=== PATIENT | female | born 1985 | race Caucasian/White ===

== ENCOUNTER 2016-11-25 08:53 | Inpatient (IN) | payer OTHER ==
[~2016-11-25] VITALS: Ht 162.6 cm; Wt 82.4 kg
[2016-11-25] VITALS (23 sets, daily range): BP systolic 90–136; BP diastolic 53–81
[2016-11-25] MEDS ORDERED: IRON325 MG PO (09:25)
[2016-11-25] MEDS ORDERED: PRENATAL TABLE1 EAC3 PO (09:25)
[2016-11-25] MEDS ORDERED: TYLENOL EXTRA500 MG PO (09:26)
[2016-11-25] MEDS ORDERED: MAGNESIUM400 M1 PO (09:26)
[2016-11-25] MEDS ORDERED: ZANTAC150 MG PO (09:27)
[2016-11-25 11:34] LABS: EOSINOPHIL (%) 0.1 % (0-5); HEMATOCRIT 36.1 % (36.0-46.0); IMMATURE GRANULOCYTE (%) 0.8 % (0.0-0.7); IMMATURE GRANULOCYTE COUNT 0.1 K/uL; INSTRUMENT ABS NEUTROPHIL CT 9.6 K/uL; LYMPHOCYTE COUNT 1.5 K/uL (1.0-2.8); MCH 31.6 PG (29.0-34.0); MEAN PLAT.VOLUME 11.4 uM^3 (9.5-12.4); MONOCYTE (%) 5.2 % (3-12); MONOCYTE COUNT 0.6 K/uL (0-0.8); NEUTROPHIL (%) 80.7 % (45-76); NEUTROPHIL COUNT 9.6 K/uL (1.8-6.4); PLATELET COUNT 235 K/uL (156-360); RBC DIS.WIDTH-CV 14.1 % (11.8-14.6); RBC DIS.WIDTH-SD 49.3 % (39-53); RED BLOOD COUNT 3.76 M/uL (3.80-5.20); WHITE BLOOD COUNT 11.8 K/uL (4.1-10.2)
[2016-11-26] VITALS (8 sets, daily range): BP systolic 107–127; BP diastolic 58–76
[2016-11-26] MEDS ORDERED: MOTRIN800 MG PO (00:47)
[2016-11-26] MEDS ORDERED: ZANTAC150 MG PO (00:47)
[2016-11-26] MEDS ORDERED: PERCOCET 5/31 TABLET PO (00:47)
[2016-11-27 03:10] VITALS: BP 119/72
[2016-11-27 07:14] LABS: EOSINOPHIL (%) 0.9 % (0-5); EOSINOPHIL COUNT 0.2 K/uL (0-0.3); HEMATOCRIT 31.1 % (36.0-46.0); IMMATURE GRANULOCYTE (%) 0.8 % (0.0-0.7); IMMATURE GRANULOCYTE COUNT 0.1 K/uL; INSTRUMENT ABS NEUTROPHIL CT 12.9 K/uL; MCH 32.1 PG (29.0-34.0); MCHC 32.8 G/DL (30.0-36.0); MCV 97.8 FL (83-99); MONOCYTE (%) 5.3 % (3-12); MONOCYTE COUNT 0.9 K/uL (0-0.8); NEUTROPHIL (%) 80.7 % (45-76); NEUTROPHIL COUNT 12.9 K/uL (1.8-6.4); PLATELET COUNT 179 K/uL (156-360); RBC DIS.WIDTH-CV 14.6 % (11.8-14.6); RBC DIS.WIDTH-SD 52.2 % (39-53); RED BLOOD COUNT 3.18 M/uL (3.80-5.20)
[2016-11-27 07:17] LABS: WHITE BLOOD COUNT 16.1 K/uL (4.1-10.2)
[2016-11-27 07:59] VITALS: BP 112/67
[2016-11-27 10:52] VITALS: BP 109/68
[2016-11-27 16:14] VITALS: BP 118/72
[2016-11-27 19:17] VITALS: BP 118/83
[2016-11-27 23:55] VITALS: BP 110/70
[2016-11-28 03:25] VITALS: BP 123/75
[2016-11-29] VITALS: BP 124/69
[2016-11-29 07:55] VITALS: BP 127/78
== END 2016-11-29 13:36 | disposition home or self-care (01) | DRG 766 ==
LOC: LDRP-OP 08:53 → 2WEST 08:54 → LDRP-OP 12-26 18:40
PROVIDERS: Midwife; Obstetrics & Gynecology
DX: O66.5 Attempted application of vacuum extractor and forceps (principal); O32.4XX0 Maternal care for high head at term, not applicable or unspecified; O77.0 Labor and delivery complicated by meconium in amniotic fluid; O76 Abnormality in fetal heart rate and rhythm complicating labor and delivery; O63.1 Prolonged second stage (of labor); O99.02 Anemia complicating childbirth; D50.9 Iron deficiency anemia, unspecified; Z3A.39 39 weeks gestation of pregnancy; Z37.0 Single live birth
CPT/HCPCS: 85025; 86850; 86900; 86901; 88307; C1755; G0378; J2175; J2274; J3010; J7120

== ENCOUNTER 2018-01-10 19:26 | Day surgery (SDC) | payer OTHER ==
[~2018-01-10] VITALS: Ht 162.6 cm; Wt 81.8 kg
[~2018-01-10 19:26] MED LIST: IRON325 MG PO; MAGNESIUM400 M1 PO; MOTRIN800 MG PO; PERCOCET 5/31 TABLET PO; PRENATAL TABLE1 EAC3 PO; TYLENOL EXTRA500 MG PO; ZANTAC150 MG PO
[2018-01-10 20:00] LABS: HEMOGLOBIN 9.7 G/DL (11.9-15.5); MCH 31.7 PG (29.0-34.0); MCHC 33.4 G/DL (30.0-36.0); MCV 94.8 FL (83-99); PLATELET COUNT 234 K/uL (156-360); RBC DIS.WIDTH-CV 13.7 % (11.8-14.6); RBC DIS.WIDTH-SD 46.7 % (39-53); RED BLOOD COUNT 3.06 M/uL (3.80-5.20); WHITE BLOOD COUNT 14.2 K/uL (4.1-10.2)
[2018-01-10 20:09] LABS: ALBUMIN 4.1 g/dL (3.2-4.8); CHLORIDE 108 mEq/L (99-109); POTASSIUM 3.9 mEq/L (3.7-5.4); SODIUM 139 mEq/L (136-147)
[2018-01-10 20:11] LABS: GLUCOSE 149 mg/dL (70-99)
[2018-01-10 20:12] LABS: TOTAL PROTEIN 6.6 g/dL (6.4-8.3)
[2018-01-10 20:13] LABS: TOTAL BILIRUBIN 0.3 mg/dL (0.0-1.0)
[2018-01-10 20:15] LABS: ALKALINE PHOSPHATASE 93 IU/L (3-129); CREATININE 0.8 mg/dL (0.6-1.3); GFR ESTIMATE (CALCULATED) > 59 mL/min/
[2018-01-10 20:16] LABS: UREA NITROGEN (BUN) 13 mg/dL (9-23)
[2018-01-10 20:17] LABS: AST (GOT) 20 IU/L (2-34)
[2018-01-10 20:18] LABS: ALT (GPT) 16 IU/L (3-49)
[2018-01-10 20:24] LABS: QUANTITATIVE HCG 10347.5 MIU/ML
[2018-01-10] MEDS ORDERED: CAMILA0.35 MG PO (21:31)
[2018-01-10] MEDS ORDERED: ALEVE220 MG PO (21:33)
[2018-01-10] MEDS ORDERED: TYLENOL PM EX-1 EACH PO (21:34)
[2018-01-10] MEDS ORDERED: ENDOCET 5-3251 EACH PO (22:34)
[2018-01-10] MEDS ORDERED: IBUPROFEN800 MG PO (22:34)
[2018-01-11 01:21] LABS: HEMATOCRIT 21.9 % (36.0-46.0); MCV 95.6 FL (83-99)
[2018-01-11 01:23] LABS: HEMOGLOBIN 7.2 G/DL (11.9-15.5)
[2018-01-11 01:38] VITALS: BP 94/46
== END 2018-01-11 03:17 | disposition home or self-care (01) ==
LOC: EME 19:26 → ENRESERV 21:20 → SDC 22:13 → 2SOUTH 22:27 → 2EAST 01-11 01:28
PROVIDERS: Nurse Practitioner Family; Obstetrics & Gynecology Gynecology
DX: O00.101 Right tubal pregnancy without intrauterine pregnancy (principal)
CPT/HCPCS: 76801; 80053; 81003; 82948; 83605; 84702; 85014; 85018; 85027; 86850; 86900; 86901; 87040; 88305; 93005; 99281; 99285; G0378; J0131; J1100; J1885; J2250; J2405; J2710; J3010; J7030; J7120; J7643; S0020